=== PATIENT | female | born 1990 | race Caucasian/White ===

== ENCOUNTER 2017-10-24 00:18 | Emergency (ER) | payer BC ==
[~2017-10-24] VITALS: Ht 167.6 cm; Wt 100.0 kg
[2017-10-24 00:20] VITALS: BP 159/102; PULSE 93; RESP 18; TEMP 98; O2SAT 99
[2017-10-24] MEDS ORDERED: PRED20 PO (00:37)
[2017-10-24] MEDS ORDERED: GUAI1SOL7 PO (00:37)
[2017-10-24] MEDS ORDERED: BENZ1CAP51 PO (00:37)
[2017-10-24] MEDS ORDERED: PHEN1MIS PO (00:37)
[2017-10-24] MEDS ORDERED: SODIUM CHLORIDE 0.9% FLUSH 10 ML FLUSH IVF PRN (01:15)
[2017-10-24 01:18] LABS: AUTOMATED NEUTROPHIL # 8.9 TH/MM3 (1.8-7.7); BASOPHIL % 0.4 % (0.0-2.0); EOSINOPHIL # 0.1 TH/MM3 (0-0.4); EOSINOPHIL % 0.7 % (0.0-4.0); HEMATOCRIT 36.9 % (35.0-46.0); HEMOGLOBIN 12.7 GM/DL (11.6-15.3); LYMPH % 7.8 % (9.0-44.0); LYMPHOCYTE # 0.8 TH/MM3 (1.0-4.8); MEAN CORPUSCULAR HEMOGLOBIN 28.6 PG (27.0-34.0); MEAN CORPUSCULAR HGB CONC 34.5 % (32.0-36.0); MEAN PLATELET VOLUME 7.3 FL (7.0-11.0); MONO % 7.2 % (0.0-8.0); MONOCYTE # 0.8 TH/MM3 (0-0.9); NEUT % 83.9 % (16.0-70.0); PLATELET COUNT 427 TH/MM3 (150-450); RED BLOOD COUNT 4.44 MIL/MM3 (4.00-5.30); RED CELL DISTRIBUTION WIDTH 12.9 % (11.6-17.2); WHITE BLOOD COUNT 10.6 TH/MM3 (4.0-11.0)
[2017-10-24 01:29] VITALS: BP 136/77; PULSE 73; RESP 17; O2SAT 98
[2017-10-24 01:36] LABS: BICARBONATE 23.8 MEQ/L (21.0-32.0); BLOOD UREA NITROGEN 14 MG/DL (7-18); CALCIUM 8.5 MG/DL (8.5-10.1); CHLORIDE 106 MEQ/L (98-107); CREATININE 0.68 MG/DL (0.50-1.00); GLOMERULAR FILTRATION RATE 105 ML/MIN (>89); GLUCOSE,RANDOM 105 MG/DL (74-106); MAGNESIUM 2.1 MG/DL (1.5-2.5); SODIUM (NA) 139 MEQ/L (136-145)
[2017-10-24 01:39] LABS: TROPONIN I LESS THAN 0.02 NG/ML (0.02-0.05)
--- NOTE | 2017-10-24 01:40 | RADRPT ---
EXAM DATE/TIME: 10/24/2017 01:10 [place] COMPARISON: No previous studies available for comparison. INDICATIONS : Back and chest pain earlier but resolved. MEDICAL HISTORY : None. SURGICAL HISTORY : None. ENCOUNTER: Initial ACUITY: 1 day PAIN SCORE: 0/10 LOCATION: Bilateral chest FINDINGS: Single AP view of the chest. The lungs are clear. Cardiomediastinal silhouette within normal limits. No evidence of pleural effusion or pneumothorax. CONCLUSION: No acute cardiopulmonary disease identified. Miguel Layton MD on October 24, 2017 at 1:37 Board Certified Radiologist. This report was verified electronically.
[2017-10-24] MEDS ORDERED: VENTAER INH (02:23)
--- NOTE | 2017-10-24 02:25 | PD ---
HPI Chief Complaint: Pain: Acute or Chronic Time Seen by Provider: 01:05 Travel History International Travel<30 days: No Contact w/Intl Traveler<30days: No Traveled to known affect area: No History of Present Illness HPI 27-year-old female presents to the emergency department by private transportation for complaint of left-sided flank and upper back pain that awakened her from sleep and worsened with taking deep inspiratory effort. Symptoms occurred prior to arrival to the emergency department. Patient states symptoms have resolved this time. Patient has recently been treated for bronchitis and is currently on steroid therapy and cough medication as prescribed for her by her primary care provider in [place]. Patient recently traveled from [place] to [place] today. Patient has not had fever or productive cough. Patient is currently not on antibiotic therapy. Patient's had bronchitis in the past and required a later/albuterol therapy but does not have an inhaler at this time and does not use a nebulizer. Patient states she is not and is just finishing her menses. No dysuria frequency urgency or hematuria. Patient states no known injury. Patient denies personal history of clotting disorder control pill use tobacco use protracted illness or bedrest her surgical procedure. Patient has been active since her diagnosis of bronchitis and was ambulatory during her travels. No family history of clotting disorder. Patient does not report any leg pain or swelling or upper extremity pain or swelling. Presently patient does not have any chest pain upper back pain or pleuritic pain. Patient does not have any reproducible chest wall tenderness. No prior history of kidney stones. No associated nausea vomiting or sweats. Also no near-syncope or syncope. Patient is unable to identify exacerbating or alleviating factors. Patient took no medications prior to arrival to the emergency department for symptom relief. No report of abdominal pain increased eructation and flatulence. COUNT INCLUDES THE [facility] Past Medical History Narrative Medical Bronchitis, vertigo; no tobacco use; nursing notes reviewed Medical other: Yes (VERTIGO) ?: Not LMP: 10/23/17 Past Surgical History Surgical History: No Previous Surgery Social History Alcohol Use: Yes Tobacco Use: No Substance Use: No Allergies-Medications (Allergen,Severity, Reaction): Coded Allergies: No Known Allergies (Unverified , 10/24/17) Reported Meds & Prescriptions Reported Meds & Active Scripts Active Ventolin Hfa 18 GM Inh (Albuterol Sulfate) 90 Mcg/Act Aer 2 Puff INH Q4-6H PRN Reported Mucinex Fast-Max Day Time Liq (Tnzfshdqansex-Xuhjpb-IU-Guaif-Apap Liq) 10-25-20- 400-650 Mg/20 Ml Liq 2 Tab PO Q4HR Prednisone 20 Mg Tab 20 Mg PO DIRECTED 40 MG twice a day x 3 days, then 20 MG daily x 3 days, then 10 MG daily x 3 days Benzonatate 200 Mg Cap 200 Mg PO TID PRN Virtussin A-C Liq (Guaifenesin-Codeine Liq) 100-10 Mg/5 Ml Soln 10 Ml PO Q4-6H PRN Review of Systems Except as stated in HPI: all other systems reviewed are Neg General / Constitutional: No: Fever, Chills HENT: No: Sore Throat, Congestion Cardiovascular: Positive: Chest Pain or Discomfort (prior to arrival to the emergency department currently does not), No: Diaphoresis, Syncope ( have pain) Respiratory: Positive: Pleuritic Pain, No: Shortness of Breath, Orthopnea, Hemoptysis Gastrointestinal: No: Nausea Genitourinary: No: Urgency, Frequency, Decreased Urinary Output Musculoskeletal: No: Myalgias, Arthralgias Skin: No Rash Neurologic: No: Weakness, Dizziness, Syncope Psychiatric: No: Anxiety Hematologic/Lymphatic: No: Lymph Node Enlargement Physical Exam Narrative GENERAL: Well-developed well-nourished female in no acute distress no respiratory distress room air O2 saturation 99 and 100%. SKIN: Warm and dry. HEAD: Normocephalic. EYES: No scleral icterus. No injection or drainage. NECK: Supple, trachea midline. No JVD or lymphadenopathy. CARDIOVASCULAR: Regular rate and rhythm without murmurs, gallops, or rubs. RESPIRATORY: Breath sounds equal bilaterally. No accessory muscle use. GASTROINTESTINAL: Abdomen soft, non-tender, nondistended. MUSCULOSKELETAL: No cyanosis, or edema. Radial and dorsalis pedis pulses 2+ to palpation bilaterally BACK: Nontender without obvious deformity. No CVA tenderness. Data Data Last Documented VS Vital Signs Date Time Temp Pulse Resp B/P (MAP) Pulse Ox O2 Delivery O2 Flow Rate FiO2 10/24/17 02:52 136/72 (93) 10/24/17 02:30 Room Air 10/24/17 01:29 73 17 98 10/24/17 00:20 98.0 Orders Orders Complete Blood Count With Diff (10/24/17 01:05) Basic Metabolic Panel (Bmp) (10/24/17 01:05) D-Dimer (10/24/17 01:05) Magnesium (Mg) (10/24/17 01:05) Troponin I (10/24/17 01:05) Iv Access Insert/Monitor (10/24/17 01:05) Electrocardiogram (10/24/17 01:05) Ecg Monitoring (10/24/17 01:05) Oximetry (10/24/17 01:05) Oxygen Administration (10/24/17 01:05) Chest, Single Ap (10/24/17 01:05) Sodium Chloride 0.9% Flush (Ns Flush) (10/24/17 01:15) Ed Urine Pregnancytest Poc (10/24/17 01:05) Ed Discharge Order (10/24/17 02:48) Labs Laboratory Tests Test 10/24/17 01:11 White Blood Count 10.6 TH/MM3 Red Blood Count 4.44 MIL/MM3 Hemoglobin 12.7 GM/DL Hematocrit 36.9 % Mean Corpuscular Volume 83.0 FL Mean Corpuscular Hemoglobin 28.6 PG Mean Corpuscular Hemoglobin Concent 34.5 % Red Cell Distribution Width 12.9 % Platelet Count 427 TH/MM3 Mean Platelet Volume 7.3 FL Neutrophils (%) (Auto) 83.9 % Lymphocytes (%) (Auto) 7.8 % Monocytes (%) (Auto) 7.2 % Eosinophils (%) (Auto) 0.7 % Basophils (%) (Auto) 0.4 % Neutrophils # (Auto) 8.9 TH/MM3 Lymphocytes # (Auto) 0.8 TH/MM3 Monocytes # (Auto) 0.8 TH/MM3 Eosinophils # (Auto) 0.1 TH/MM3 Basophils # (Auto) 0.0 TH/MM3 CBC Comment DIFF FINAL Differential Comment D-Dimer Quantitative (PE/DVT) LESS THAN 0.19 MG/L FEU Blood Urea Nitrogen 14 MG/DL Creatinine 0.68 MG/DL Random Glucose 105 MG/DL Calcium Level 8.5 MG/DL Magnesium Level 2.1 MG/DL Sodium Level 139 MEQ/L Potassium Level 4.0 MEQ/L Chloride Level 106 MEQ/L Carbon Dioxide Level 23.8 MEQ/L Anion Gap 9 MEQ/L Estimat Glomerular Filtration Rate 105 ML/MIN Troponin I LESS THAN 0.02 NG/ML MDM Medical Decision Making Medical Screen Exam Complete: Yes Emergency Medical Condition: Yes Medical Record Reviewed: Yes Interpretation(s) D-dimer: Less than 0.19, not elevated EKG normal sinus rhythm rate [address] elevation injury pattern or ectopy noted CBC & BMP Diagram 10/24/17 01:11 Calcium Level 8.5, Magnesium Level 2.1 Vital Signs Date Time Temp Pulse Resp B/P (MAP) Pulse Ox O2 Delivery O2 Flow Rate FiO2 10/24/17 01:29 73 17 136/77 (96) 98 Room Air 10/24/17 01:29 17 98 Room Air 10/24/17 00:38 77 15 10/24/17 00:20 98.0 93 18 159/102 (121) 99 Room Air Last Impressions Chest X-Ray 10/24/17 0105 Signed Impressions: Service Date/Time: Tuesday, October 24, 2017 01:10 - CONCLUSION: No acute cardiopulmonary disease identified. Miguel Layton MD [id number] hCG: Negative Differential Diagnosis Chest pain, pleurisy, costochondritis, pneumonia, bronchitis, PE, pneumothorax, intestinal colic, flank pain, kidney stone, UTI Narrative Course Patient is placed on monitoring tech IV access obtained EKG performed continuous pulse oximetry performed Specimens collected and sent for resulting EKG is sinus rhythm no acute ST elevation injury pattern right bundle branch block or tachycardia noted Chest x-ray reveals no acute process specifically no infiltrate and no pneumothorax or effusion Lab values grossly normal range specifically d-dimer is less than 0.19 and troponin I is less than 0.02, values are not elevated Patient informed of lab results and imaging results continues to deny pain that was 8-9/10 intensity is currently 1/10 in intensity; patient administered one time dose of Toradol 30 mg IV Patient denies updraft treatment or further diagnostic studies or imaging as she states she feels well at this time; patient appears stable for outpatient management with diagnosis of bronchitis will provide prescription for albuterol inhaler. Diagnosis Primary Impression: Bronchitis Additional Impression: Pleuritic chest pain Referrals: Primary Care Physician 3 days Patient Instructions: General Instructions Additional Instructions: Increase fluid hydration Follow-up with primary care provider Return to the emergency department for any concerns or change in condition Complete steroid as prescribed Use inhaler as prescribed as needed for wheezing or shortness of breath Monitor temperature every 4 hours with thermometer take acetaminophen/Tylenol every 4 hours for fever 100.4F or greater May use ibuprofen 800 mg as often as every 8 hours for pain associated with inflammation for fever 100.4F or greater Med/Other Pt SpecificInfo: Prescription(s) given Scripts Albuterol 18 GM Inh (Ventolin Hfa 18 GM Inh) 90 Mcg/Act Aer 2 PUFF INH Q4-6H Y for SHORTNESS OF BREATH, #1 INHALER 0 Refills Prov: Felisa Romano MD 10/24/17 Disposition: 01 DISCHARGE HOME Condition: Stable Felisa Romano MD Oct 24, 2017 02:24
[2017-10-24 02:52] VITALS: BP 136/72
--- NOTE | 2017-10-24 13:08 | EKG ---
Date Performed: 10/24/2017 Time Performed: 01:24:11 PTAGE: 27 years EKG: Sinus rhythm LOW QRS VOLTAGE IN PRECORDIAL LEADS BORDERLINE ECG NO PREVIOUS TRACING DOCTOR: Stevo Srivastava Interpretating Date/Time 10/24/2017 13:07:35
== END 2017-10-24 02:58 | disposition home or self-care (01) ==
LOC: NEPC 00:18
DX: J40 Bronchitis, not specified as acute or chronic (principal); R07.89 Other chest pain; I45.10 Unspecified right bundle-branch block; Z79.899 Other long term (current) drug therapy
CPT/HCPCS: 71045; 80048; 83735; 84484; 84703; 85025; 85379; 93005; 99285